=== PATIENT | female | born 1980 | race Caucasian/White ===

== ENCOUNTER → 2016-02-25 | Outpatient (CLI) | payer BC | LOC: MOB LAB 11:55 | PROVIDERS: ATTEND Student in an Organized Health Care Education/Training Program | DX: N92.6 Irregular menstruation, unspecified (principal) | CPT/HCPCS: 36415; 84702 ==

== ENCOUNTER → 2016-02-27 | Outpatient (CLI) | payer BC | LOC: LAB 09:38 | PROVIDERS: ATTEND Student in an Organized Health Care Education/Training Program | DX: N92.6 Irregular menstruation, unspecified (principal); R94.5 Abnormal results of liver function studies | CPT/HCPCS: 36415; 82248; 84702 ==

== ENCOUNTER → 2016-03-13 | Outpatient (CLI) | payer BC ==
[2016-03-13 11:48] LABS: BASOPHILS # (AUTO) 0.04 10*3/UL; BASOPHILS % (AUTO) 0.4 % (0-1); EOSINOPHILS % (AUTO) 1.1 % (0-8); HEMATOCRIT 39.5 % (37.0-47.0); HEMOGLOBIN 14.3 g/dL (12.0-16.0); IMM GRAN % (AUTO) 0.2 % (0-5); IMM GRAN# (AUTO) 0.02 10*3/UL; LYMPHOCYTES # (AUTO) 2.19 10*3/uL; LYMPHOCYTES % (AUTO) 22.8 % (10-50); MEAN CORPUSCULAR HEMOGLOBIN 33.8 PG (27-31); MEAN CORPUSCULAR HGB CONC 36.2 g/dL (33-37); MEAN PLATELET VOLUME 9.2 FL (7.4-12.2); MONOCYTES # (AUTO) 0.77 10*3/UL (0.3-0.8); NEUTROPHILS # (AUTO) 6.47 10*3/UL; NEUTROPHILS % (AUTO) 67.5 % (50-80); RDW COEFFICIENT OF VARIATION 11.9 % (11.5-14.5); RED BLOOD COUNT 4.23 10^6/uL (4.20-5.40)
[2016-03-13 11:51] LABS: PLATELET MORPHOLOGY COMMENT NORMAL MORPHOLOGY (NORM); PRENATAL QUESTION YES (Y)
[2016-03-13 14:35] LABS: HIV ANTIBODY NEGATIVE (N); HIV-1 P24 ANTIGEN NEGATIVE (N)
[2016-03-14 17:49] LABS: HEP B SURFACE AG Negative (Negative); SYPHILIS IGG WITH REFLEX Negative (Negative)
== END ==
LOC: MOB LAB 11:06
PROVIDERS: ATTEND Student in an Organized Health Care Education/Training Program
DX: Z34.91 Encounter for supervision of normal pregnancy, unspecified, first trimester (principal)
CPT/HCPCS: 80081; 86900; 86901; 87088; 87210

== ENCOUNTER → 2016-03-20 | Outpatient (CLI) | payer BC ==
--- NOTE | 2016-03-20 12:25 | DI ---
HISTORY: Check gestational age. COMPARISON: None available. TECHNIQUE: Transvaginal images were obtained and submitted for interpretation. FINDINGS: Examination demonstrates a gestational sac width of 10 mm corresponding with an estimated gestational age of 7 weeks 1 day. heart tones measure 136 beats per minute. There are follicles seen in both ovaries with one beings somewhat complex with peripheral flow in the right ovary most consistent with a corpus luteum cyst. IMPRESSION: 1. Single live intrauterine gestation with estimated gestational age of 7 weeks 1 day. NOTE: The interpreting Radiologist was not present at the time of ultrasound interrogation.
--- NOTE | 2016-03-20 12:31 | DI ---
HISTORY: Check gestational age. COMPARISON: None available. TECHNIQUE: Transabdominal images of the pelvis were obtained and submitted for interpretation. FINDINGS: Examination demonstrates normal appearing ovaries. A gestational sac is seen in the endometrial canal which is not well-evaluated. There is normal Doppler flow in the ovaries. [place] rump length corresponds with a gestational age of 7 weeks 1 day. Heart tones are recorded at 118 beats per minute. IMPRESSION: 1. Single live intrauterine gestation with estimated gestational age of 7 weeks 1 day. NOTE: The interpreting Radiologist was not present at the time of ultrasound interrogation.
== END ==
LOC: US 08:50
PROVIDERS: ATTEND Student in an Organized Health Care Education/Training Program
DX: Z36 Encounter for antenatal screening of mother (principal)
CPT/HCPCS: 76801; 76817

== ENCOUNTER → 2016-04-14 | Outpatient (CLI) | payer BC ==
--- NOTE | 2016-04-14 13:47 | DI ---
OBSTETRICAL ULTRASOUND, 04/14/2016 12:52 PM: Clinical History: Missed with demise before 20 completed weeks of gestation. Previous Exam: 03/20/2016. LMP: 01/29/2016. There is a single intrauterine . No spontaneous activity is observed, and there is no cardia c activity. Color Doppler ultrasound confirms the absence of any cardiac activity. There is edema ass ociated with the scalp and on multiple views, there is the beginning of overlapping of the fron mitzi bones indicating a positive [place] sign. [place]-rump length measurement is 31 mm corresponding t o an EGA of 10 weeks 0 days. Based on the LMP, the gestational age would be 10 weeks 6 days. Reading: demise confirmed by visualization of a positive Avila sign and edema surrounding the head as well as absence of cardiac activity with color Doppler ultrasound.
== END ==
LOC: US 12:43
PROVIDERS: ATTEND Student in an Organized Health Care Education/Training Program
DX: O02.1 Missed abortion (principal)
CPT/HCPCS: 76817

== ENCOUNTER 2016-04-16 06:46 | Day surgery (SDC) | payer BC ==
[~2016-04-16 06:46] MED LIST: LIDOCAINE W/ SODIUM BICARB 0.5 ML SYR ONE; Lactated Ringers 1,000 ML PRIMARY IV ONE
[2016-04-16] MEDS ORDERED: MIDAZOLAM 5 MG/1 ML ONE (07:07)
[2016-04-16] MEDS ORDERED: KETOROLAC 30 MG/1 ML VIAL ONE (07:07)
[2016-04-16] MEDS ORDERED: DEXAMETHASONE PF 10 MG/1 ML VIAL ONE (07:07)
[2016-04-16] MEDS ORDERED: KETAMINE 100 MG/1 ML - 5 ML ONE (07:07)
[2016-04-16] MEDS ORDERED: fentaNYL Inj 100 MCG/2 ML VIAL ONE (07:07)
[2016-04-16] MEDS ORDERED: LIDOCAINE MPF 2% - 5 ML (20 MG/1 ML) ONE (07:07)
[2016-04-16] MEDS ORDERED: Sodium Chloride 0.9% vial 10 ML ONE ×3 (07:07→07:12)
[2016-04-16] MEDS ORDERED: REMIFENTANIL 1 MG/1 ML IV ONE (07:07)
[2016-04-16 07:29] LABS: HEMATOCRIT 34.8 % (37.0-47.0); HEMOGLOBIN 12.7 g/dL (12.0-16.0)
[2016-04-16] MEDS ORDERED: Acetaminophen 1000mg Inj 100 ML IV ONE (07:39)
[2016-04-16] MEDS ORDERED: SCOPOLAMINE HYDROBROMIDE 1.5 MG - 1 EACH PATCH TRANSDERM ONE (07:43)
[2016-04-16] MEDS ORDERED: BUPivacaine Inj 0.25% PF - 10ml vial ONE (07:52)
[2016-04-16 08:10] VITALS: RESP 20
[2016-04-16] MEDS ORDERED: ONDANSETRON 4 MG/2 ML VIAL ONE (08:36)
[2016-04-16] MEDS ORDERED: Lactated Ringers 1,000 ML PRIMARY IV ONE ×2 (08:36→09:20)
[2016-04-16] MEDS ORDERED: IBUPROFEN 800 MG TABLET PO PRN (08:51)
[2016-04-16] MEDS ORDERED: KETOROLAC 30 MG/1 ML VIAL IVP PRN (08:51)
[2016-04-16] MEDS ORDERED: Ondansetron ODT Tab 8 MG TAB PO PRN (08:51)
[2016-04-16] MEDS ORDERED: NORMAL SALINE 10 ML SYRINGE FLUSH IVP PRN ×2 (08:51→09:13)
--- NOTE | 2016-04-16 08:55 | OB.OP.NOTE ---
Operative Report Surgeon: Ivelisse Paragliding Instructor: Thierry Nelson MD Anesthesia Type: General Anesthesia Provider: Jennifer Mckinney CRNA Surgery Date: 04/16/16 Preoperative Diagnosis: Missed AB. Desires Sterilization. Postoperative Diagnosis: Same Procedure: Suction D&C/LSTS with Filschie Clips Estimated Blood Loss (mL): 75 Fluids: 1000 ml Complications: None Findings at Surgery: 11 cm sound. Copious POC. Normal uterus, tubes and ovaries. Small omental adhesion to the anterior abdominal wall just below the umbilicus. Good placement of Filschie Clips. Indications for the Procedure: Missed AB at 10 weeks. Desires permanent sterilization. Description of Procedure: See dictated operative report. Plan: Routine post op care and discharge to home.
[2016-04-16] MEDS ORDERED: HYDROmorphone 2 MG/1 ML ONE (09:03)
[2016-04-16] MEDS: HYDROmorphone 2 MG/1 ML IVP PRN ×2 (09:05→09:10)
[2016-04-16] MEDS ORDERED: ATROPINE SULFATE 0.4 MG/1 ML VIAL IVP PRN (09:13)
[2016-04-16] MEDS ORDERED: Lactated Ringers 1,000 ML PRIMARY IV SCH (09:15)
[2016-04-16] MEDS ORDERED: BUTORPHANOL TARTRATE 2 MG/1 ML VIAL IVP ONE (09:17)
[2016-04-16] MEDS ORDERED: BUTORPHANOL TARTRATE 2 MG/1 ML VIAL ONE (09:18)
[2016-04-16] MEDS ORDERED: HYDROcodone-APAP 5 MG -325 MG TABLET PO ONE ×2 (09:31→09:54)
[2016-04-16] MEDS: HYDROcodone-APAP 5 MG -325 MG TABLET PO PRN ×2 (09:33→09:55)
[2016-04-16] MEDS ORDERED: Ondansetron ODT Tab 8 MG TAB PO ONE ×2 (10:40→10:43)
[2016-04-16 13:15] VITALS: TEMP 97.4
== END 2016-04-16 10:50 | disposition home or self-care (01) ==
LOC: SDSC 06:46
PROVIDERS: ATTEND Obstetrics & Gynecology
DX: O02.1 Missed abortion (principal); Z30.2 Encounter for sterilization
CPT/HCPCS: 58671; 59820; 85014; 85018; 87641; A4216; J0131; J0595; J1885; J2704; J3010; Q0162; J1100; J1170; J2001; J2250; J2405; J7120